=== PATIENT | female | born 1935 | race Caucasian/White ===

== ENCOUNTER 2023-06-05 09:57 | Emergency (ER) | payer MEDICARE, SELFPAY ==
--- NOTE | 2023-06-05 10:10 | ED.FEMALEGU ---
HPI - Female Genitourinary General Chief complaint: Urogenital-Female Stated complaint: uti symptoms Time Seen by Provider: 06/05/23 10:10 Source: patient Mode of arrival: ambulatory Limitations: no limitations History of Present Illness HPI Narrative: Patient is a 88-year-old female that presents with 4 days of burning with urination and frequency. Denies any low back pain, abdominal pain, fever, chills, nausea, vomiting, diarrhea. States she had 1 episode of diarrhea before the start of symptoms and thinks that caused her UTI. Patient wears pads due to urge incontinence MD elicited complaint: dysuria Related Data Home Medications Medication Instructions Recorded Confirmed aspirin 81 mg tablet,delayed 81 mg PO DAILY 06/05/23 06/05/23 release cetirizine 10 mg tablet 10 mg DIRECTED 06/05/23 06/05/23 furosemide 20 mg tablet 20 mg DIRECTED 06/05/23 06/05/23 levothyroxine 75 mcg tablet 75 mcg DIRECTED 06/05/23 06/05/23 metoprolol succinate 25 mg 25 mg PO DIRECTED 06/05/23 06/05/23 tablet,extended release 24 hr montelukast 10 mg tablet 10 mg PO DIRECTED 06/05/23 06/05/23 potassium chloride 20 mEq 20 meq PO DIRECTED 06/05/23 06/05/23 tablet,extended release(part/cryst) Allergies Allergy/AdvReac Type Severity Reaction Status Date / Time Sulfa (Sulfonamide Allergy Intermediate Rash Verified 06/05/23 10:24 Antibiotics) Review of Systems Review of Systems: All systems reviewed & are unremarkable except as noted in HPI and below Constitutional: Constitutional: Denies chills, Denies fever(s), Denies headache(s), Denies malaise and Denies weakness Eyes: Eyes: Denies change in vision, Denies eye discharge and Denies irritation ENT: Denies otalgia, Denies headache(s), Denies nasal congestion, Denies nasal discharge, Denies sinus pain and Denies sore throat Cardiovascular: Cardiovascular: Denies chest pain, Denies edema, Denies palpitations and Denies dyspnea Respiratory: Respiratory: Denies cough and Denies dyspnea Gastrointestinal: Gastrointestinal: Denies abdominal pain, Denies diarrhea, Denies nausea and Denies vomiting Genitourinary: Genitourinary: Denies hematuria, Reports nocturia, Reports dysuria, Denies flank pain and Reports urinary urgency Musculoskeletal: Musculoskeletal: Denies back pain and Denies numbness Integumentary/Breasts: Skin/Breast: Denies pruritus and Denies rash Neurologic: Denies headache(s), Denies numbness and Denies weakness Psychiatric: Psychiatric: Reports no additional psychiatric complaints Endocrine: Endocrine: Denies palpitations PMFSH Comments At time of signature, agree with nursing past medical, surgical, social and family history. There is no relevant family history pertinent to the presenting complaint. Exam Const: General: cooperative, healthy appearing, comfortable, no acute distress and well nourished Nutritional Appearance: well nourished Orientation/consciousness: patient oriented x3 HENMT: Head: normocephalic and atraumatic Ears: external ears normal Face/Nose/Sinus: Normal external nose present, Normal nares present and normal facial exam Face and sinus: normal facial exam Eyes: General: appearance normal, both eyes and all related structures Pupils: Equal, round and reactive pupils present EOM: EOMs intact bilaterally Neck: Neck: normal visual inspection, full ROM and supple Chest: Chest palpation & inspection: normal inspection of the chest Resp: Effort & Inspection: normal respiratory effort and able to speak in complete sentences Cardio: Rate: regular rate Rhythm: regular rhythm GI: Inspection: normal to inspection GI Palp: No abdominal tenderness and Yes Soft to palpation : General: Yes no CVA tenderness Back/Spine/Pelvis: Back: no CVA tenderness Skin: General skin exam: normal color and no rashes or lesions noted Neuro: General: patient oriented x3 and moves all extremities Cranial nerves: Yes Equal, round and re
[2023-06-05 10:31] VITALS: BP 171/65; PULSE 65; RESP 16; TEMP 36.8; O2SAT 98
== END 2023-06-05 11:13 | disposition home or self-care (01) ==
PROVIDERS: Emergency Provider Nurse Practitioner Family
DX: N30.01 Acute cystitis with hematuria (principal); B96.20 Unspecified Escherichia coli [E. coli] as the cause of diseases classified elsewhere; I11.0 Hypertensive heart disease with heart failure; I50.9 Heart failure, unspecified; H26.9 Unspecified cataract; E89.0 Postprocedural hypothyroidism
CPT/HCPCS: 81003; 87077; 87086; 87186; 99213; G0463

== ENCOUNTER 2023-06-07 10:25 | Emergency (ER) | payer MEDICARE, SELFPAY ==
[2023-06-07 10:35] VITALS: BP 150/69; PULSE 68; RESP 16; TEMP 36.4; O2SAT 96
--- NOTE | 2023-06-07 11:18 | ED.GENADULT ---
HPI - General Adult General Chief complaint: Allergic Reaction Stated complaint: Reaction To Medication Source: patient, RN notes reviewed and old records reviewed Mode of arrival: ambulatory Limitations: no limitations History of Present Illness HPI narrative: 88-year-old female presents [facility] with complaint throat soreness and weaved feeling and throat. Patient states symptoms started last night after taking Macrobid, but she is on for urinary tract infection. Patient denies shortness of breath, chest pain, swelling of tongue or lips. Patient took Benadryl around midnight and states helped symptoms Related Data Home Medications Medication Instructions Recorded Confirmed aspirin 81 mg tablet,delayed 81 mg PO DAILY 06/05/23 06/07/23 release cetirizine 10 mg tablet 10 mg DIRECTED 06/05/23 06/07/23 furosemide 20 mg tablet 20 mg DIRECTED 06/05/23 06/07/23 levothyroxine 75 mcg tablet 75 mcg DIRECTED 06/05/23 06/07/23 metoprolol succinate 25 mg 25 mg PO DIRECTED 06/05/23 06/07/23 tablet,extended release 24 hr montelukast 10 mg tablet 10 mg PO DIRECTED 06/05/23 06/07/23 potassium chloride 20 mEq 20 meq PO DIRECTED 06/05/23 06/07/23 tablet,extended release(part/cryst) Allergies Allergy/AdvReac Type Severity Reaction Status Date / Time nitrofurantoin AdvReac Intermediate Other Verified 06/07/23 10:51 [From Macrobid] Sulfa (Sulfonamide AdvReac Mild Rash Verified 06/07/23 10:35 Antibiotics) Review of Systems Review of Systems: All systems reviewed & are unremarkable except as noted in HPI and below Constitutional: Constitutional: Reports no additional constitutional complaints Eyes: Eyes: Reports no additional eye complaints ENT: Reports system reviewed and no additional complaints, except as documented Comments: patient states irritation to right-sided throat Cardiovascular: Cardiovascular: Reports no additional cardiovascular complaints Respiratory: Respiratory: Reports no additional respiratory complaints, Denies no additional respiratory complaints, Denies chest congestion, Denies cough, Denies dyspnea, Denies dyspnea on exertion and Denies wheezing Neurologic: Reports system reviewed and no additional complaints, except as documented PMFSH Comments At the time of my signature, I reviewed and agree with the nursing past medical, surgical, social, and family history. There is no relevant family history pertinent to the patient complaint. Exam Const: General: cooperative, healthy appearing, no acute distress and well nourished Nutritional Appearance: well nourished Orientation/consciousness: patient oriented x3 Limitations: no limitations HENMT: Head: normal to inspection and normocephalic Ears: external ears normal, TM's normal bilaterally, mastoids normal and Abnormal EAC present Face/Nose/Sinus: normal facial exam Face and sinus: normal facial exam Mouth: Yes Normal oral and palatal mucosa present, Yes oropharynx normal and Yes moist mucous membranes Throat: posterior oropharynx normal, tonsils normal, uvula midline and no uvular edema Eyes: General: appearance normal, both eyes and all related structures Sclera: sclerae normal Pupils: Equal, round and reactive pupils present Resp: Effort & Inspection: normal respiratory effort, able to speak in complete sentences, no audible wheezes, no cough, no respiratory distress and no retractions Auscultation: clear to auscultation bilaterally, no crackles, no rales, no rhonchi and no wheezes Cardio: Rate: regular rate Rhythm: regular rhythm Skin: General skin exam: normal color and no rashes or lesions noted Neuro: General: patient oriented x3 Cranial nerves: Yes Equal, round and reactive pupils present Psych: Appearance: grossly normal Course Course Emergency Course: Some parts of this dictation were generated by voice recognition software and may contain typographical and/or grammatical in
== END 2023-06-07 11:24 | disposition home or self-care (01) ==
PROVIDERS: Emergency Provider Registered Nurse
DX: T78.40XA Allergy, unspecified, initial encounter (principal); N39.0 Urinary tract infection, site not specified; B96.20 Unspecified Escherichia coli [E. coli] as the cause of diseases classified elsewhere; Z79.82 Long term (current) use of aspirin; I11.0 Hypertensive heart disease with heart failure; I50.9 Heart failure, unspecified; H26.9 Unspecified cataract; E89.0 Postprocedural hypothyroidism
CPT/HCPCS: 99213; G0463